=== PATIENT | female | born 1995 | race Caucasian/White ===

== ENCOUNTER 2016-10-05 00:14 | Emergency (ER) | payer OTHER ==
[2016-10-05 00:21] VITALS: RESP 16; TEMP 97.5
--- NOTE | 2016-10-05 00:40 | CPEKG ---
Heart Rate: 124 RR Interval: 484 P-R Interval: 156 QRSD Interval: 88 QT Interval: 304 QTC Interval: 437 P [place]: 36 QRS [place]: 35 T Wave [place]: 43 EKG Severity - OTHERWISE NORMAL ECG - EKG Impression: SINUS TACHYCARDIA Electronically Signed By: Mily Jimenez 06-Oct-2016 08:20:20
[2016-10-05] MEDS ORDERED: NS 1,000 ML IV ONE (01:22)
[2016-10-05 02:03] LABS: % IMMATURE GRANULYOCYTES 0.4 % (0.0-1.1); ABSOLUTE IMMATURE GRANULOCYTES 0.06 10^3/uL (0.00-0.10); ADD DIFF? NO; ADD MORPH? NO; ADD SCAN? NO; ATYPICAL LYMPHOCYTE FLAG 0 (0-99); FRAGMENT RBC FLAG 0 (0-99); HEMATOCRIT 40.7 % (38.0-47.0); HEMOGLOBIN 13.7 g/dL (12.6-16.3); LEFT SHIFT FLG 0 (0-99); LIPEMIA HEMOLYSIS FLAG 80 (0-99); MEAN CELL HEMOGLOBIN 29.8 pg (27.9-34.1); MEAN CELL HEMOGLOBIN CONCENTR. 33.7 g/dL (32.4-36.7); MEAN CELL VOLUME 88.7 fL (81.5-99.8); MEAN PLATELET VOLUME 9.7 fL (8.7-11.7); PLATELET CLUMPS FLAG 0 (0-99); PLATELET COUNT 280 10^3/uL (150-400); RED BLOOD CELL COUNT 4.59 10^6/uL (4.18-5.33); RED CELL DISTRIBUTION WIDTH 13.1 % (11.5-15.2)
[2016-10-05 02:18] LABS: ALANINE AMINOTRANSFERASE 38 IU/L (9-52); ALBUMIN 4.3 g/dL (3.5-5.0); ALKALINE PHOSPHATASE 70 IU/L (38-126); ANION GAP 13 mEq/L (8-16); ASPARTATE AMINOTRANSFERASE 31 IU/L (14-46); BILIRUBIN,TOTAL 0.4 mg/dL (0.1-1.4); CALCIUM 9.6 mg/dL (8.5-10.4); CARBON DIOXIDE 26 mEq/l (22-31); CHLORIDE 106 mEq/L (97-110); CREATININE 0.7 mg/dL (0.6-1.0); GLOMERULAR FILTRATION RATE > 60; GLUCOSE 105 mg/dL (70-100); POTASSIUM 4.1 mEq/L (3.5-5.2); SODIUM 145 mEq/L (134-144); TOTAL PROTEIN 7.4 g/dL (6.3-8.2)
--- NOTE | 2016-10-05 03:02 | EDPHY ---
H & P Stated Complaint: syncope x 3 over past hr. poss struck head on br floor. Time Seen by Provider: 10/05/16 01:13 HPI/ROS: HPI The patient presents with a syncopal episode which occurred just prior to arrival. The patient had consumed a marijuana edible about 3 hours prior to the onset of her symptoms. She began to feel like she was having a panic attack and went to the bathroom while in the movie [place]. She began to feel lightheaded and then awoke on the floor. This happened 2 additional times when she tried to get up. She did not hit her head. She now feels fine, however prior to her arrival her friend who is here with her said that she was acting somewhat confused. She has no prior history. She has had panic attacks with marijuana use previously. She does not have any chest pain, shortness of breath , palpitations. REVIEW OF SYSTEMS Constitutional: No fever, no chills. Eyes: No discharge. ENT: No sore throat. Cardiovascular: No chest pain, no palpitations. Respiratory: No cough, no shortness of breath. Gastrointestinal: No abdominal pain, no vomiting. Genitourinary: No hematuria. Musculoskeletal: No back pain. Skin: No rashes. Neurological: No headache. PMHx: Healthy Soc Hx: Marijuana use, college student PHYSICAL General Appearance: Alert, no distress Eyes: Pupils equal and round no pallor or injection ENT, Mouth: Mucous membranes moist Respiratory: There are no retractions, lungs are clear to auscultation Cardiovascular: Regular rate and rhythm Gastrointestinal: Abdomen is soft and non-tender, no masses, bowel sounds normal Neurological: A&O x3, cranial nerves 2-12 intact, 5/5 strength in upper and lower extremities which is symmetric, normal finger to nose testing Skin: Warm and dry, no rashes Musculoskeletal: Neck is supple non tender Extremities: symmetrical, full range of motion Psychiatric: Patient is oriented X 3, there is no agitation Source: Patient - Personal History LMP (Females 10-55): 1-7 Days Ago Current Tetanus/Diphtheria Vaccine: Unsure Current Tetanus Diphtheria and Acellular Pertussis (TDAP): Unsure - Medical/Surgical History Hx Asthma: No Hx Chronic Respiratory Disease: No Hx Diabetes: No Hx Cardiac Disease: No Hx Renal Disease: No Hx Cirrhosis: No Hx Alcoholism: No Hx HIV/AIDS: No Hx Splenectomy or Spleen Trauma: No Other PMH: denies - Social History Smoking Status: Never smoked Constitutional: Initial Vital Signs Temperature (C) 36.4 C 10/05/16 00:16 Heart Rate 128 H 10/05/16 00:16 Respiratory Rate 16 10/05/16 00:16 Blood Pressure 117/76 10/05/16 00:16 O2 Sat (%) 91 L 10/05/16 00:16 O2 Delivery Mode Room Air Allergies/Adverse Reactions: No Known Allergies Allergy (Unverified 10/05/16 00:16) Home Medications: Medication Instructions Recorded NK [No Known Home Meds] 10/05/16 Medical Decision Making - Diagnostics EKG Interpretation: EKG: Complete interpretation has been separately recorded in the [facility] archive. Summary impression: Sinus tachycardia, rate of 124 Differential Diagnosis: This is a 20-year-old healthy female who presents with multiple syncopal episodes tonight in the setting of marijuana use. On exam, she is tachycardic, otherwise well-appearing. She does not have any chest pain, shortness of breath , palpitations. The syncope was not exertional. Differential diagnosis includes hypovolemia, dehydration, hypotension, hypoglycemia, arrhythmia, marijuana side-effect. In the emergency room, the patient was given a 1 L bolus of normal saline. Basic labs were checked and were unremarkable. EKG was normal showing no arrhythmia. Patient did not have any events on telemetry monitoring. She was discharged home in good condition. I feel her syncope could be related to the marijuana use. - Data Points Laboratory Results: Laboratory Results 10/05/16 01:55 10/05/16 01:55 10/05/16 01:55 WBC 14.52 H 10^3/uL (3.80-9.50) RBC 4.59 10^6/uL (4.18-5.33) Hgb 13.7 g/dL (12.6-16.3) Hct 40.7 % (38.0-47.0) MCV 88.7 fL (81.5-99.8) MCH 29.8 pg (27.9-34.1) MCHC 33.7 g/dL (32.4-36.7) RDW 13.1 % (11.5-15.2) Plt Count 280 10^3/uL (150-400) MPV 9.7 fL (8.7-11.7) Neut % (Auto) 81.1 H % (39.3-74.2) Lymph % (Auto) 11.0 L % (15.0-45.0) [place] % (Auto) 7.1 % (4.5-13.0) Eos % (Auto) 0.1 L % (0.6-7.6) Baso % (Auto) 0.3 % (0.3-1.7) Nucleat RBC Rel Count 0.0 % (0.0-0.2) Absolute Neuts (auto) 11.77 H 10^3/uL (1.70-6.50) Absolute Lymphs (auto) 1.59 10^3/uL (1.00-3.00) Absolute Monos (auto) 1.03 H 10^3/uL (0.30-0.80) Absolute Eos (auto) 0.02 L 10^3/uL (0.03-0.40) Absolute Basos (auto) 0.05 10^3/uL (0.02-0.10) Absolute Nucleated RBC 0.00 10^3/uL (0-0.01) Immature Gran % 0.4 % (0.0-1.1) Immature Gran # 0.06 10^3/uL (0.00-0.10) Sodium 145 H mEq/L (134-144) Potassium 4.1 mEq/L (3.5-5.2) Chloride 106 mEq/L (97-110) Carbon Dioxide 26 mEq/l (22-31) Anion Gap 13 mEq/L (8-16) BUN 12 mg/dL (7-23) Creatinine 0.7 mg/dL (0.6-1.0) Estimated GFR > 60 Glucose 105 H mg/dL (70-100) Calcium 9.6 mg/dL (8.5-10.4) Total Bilirubin 0.4 mg/dL (0.1-1.4) AST 31 IU/L (14-46) ALT 38 IU/L (9-52) Alkaline Phosphatase 70 IU/L (38-126) Total Protein 7.4 g/dL (6.3-8.2) Albumin 4.3 g/dL (3.5-5.0) Beta HCG, Qual NEGATIVE Medications Given: Discontinued Medications Sodium Chloride (Ns) 1,000 mls @ 0 mls/hr IV ONCE ONE PRN Reason: Wide Open Stop: 10/05/16 01:23 Last Admin: 10/05/16 01:57 Dose: 1,000 mls Departure - Departure Disposition: Home, Routine, Self-Care Clinical Impression: Syncope, Tachycardia, Marijuana use Condition: Good Instructions: Syncope (ED) Referrals: [facility] [Outside] - As per Instructions
[2016-10-05 03:27] VITALS: BP 112/66; PULSE 95; O2SAT 100
== END 2016-10-05 03:25 | disposition home or self-care (01) ==
DX: R55 Syncope and collapse (principal); R00.0 Tachycardia, unspecified; F12.90 Cannabis use, unspecified, uncomplicated